=== PATIENT | female | born 1960 ===

== ENCOUNTER 2021-08-06 07:27 | Day surgery (SDC) | payer OTHER | END 2021-08-06 13:00 | disposition home or self-care (01) | LOC: AMB-ENDOS 07:27 | PROVIDERS: ATTEND Surgery | DX: K62.89 Other specified diseases of anus and rectum (principal); Z20.822 Contact with and (suspected) exposure to COVID-19; Z12.11 Encounter for screening for malignant neoplasm of colon ==